=== PATIENT | male | born 1980 ===

== ENCOUNTER 2018-10-26 19:08 | Emergency (ER) | payer OTHER ==
[2018-10-26 19:21] VITALS: BP 123/80; RESP 16; TEMP 98.6; O2SAT 98
[2018-10-26] MEDS ORDERED: Tdap Vaccine 0.5 ml Vial (10-64 yrs) IM ONE ×2 (19:23→19:30)
[2018-10-26] MEDS ORDERED: Lidocaine 1% Inj (20ml) IJ ONE (19:39)
--- NOTE | 2018-10-26 19:52 | ED PDOC ---
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 He came to ED for evaluation due to persistent bleeding. Patient is right hand dominant. He denies any other complaints. Otherwise: (-) numbness, (-) other injury. PMD: Venancio Stewart Past Medical History Reviewed: Historical Data, Nursing Documentation, Vital Signs Vital Signs: Last Vital Signs Temp 98.6 F 10/26/18 19:17 Pulse 103 H 10/26/18 19:17 Resp 16 10/26/18 19:17 BP 123/80 10/26/18 19:17 Pulse Ox 98 10/26/18 19:17 - Medical History PMH: No Chronic Diseases - Surgical History Surgical History: Tonsillectomy - Family History Family History: States: Diabetes - Living Arrangements Living Arrangements: With Family - Immunization History Hx Tetanus Toxoid Vaccination: Yes (x6 years ago) - Home Medications Home Medications: Ambulatory Orders Medication Instructions Recorded Moxifloxacin HCl [Vigamox] 1 drop OS TID #3 ml 01/05/17 RX: Bacitracin Ointment 1 applic TOP BID #1 tube 10/26/18 [Bacitracin] RX: Naproxen 500 mg PO BID PRN #20 tab 10/26/18 - Allergies Allergies/Adverse Reactions: Allergies Allergy/AdvReac Type Severity Reaction Status Date / Time shellfish derived Allergy Mild RASH Verified 01/05/17 06:44 Review of Systems ROS Statement: Except As Marked, All Systems Reviewed And Found Negative Musculoskeletal: Positive for: Hand Pain (left hand laceration) Physical Exam - Reviewed Nursing Documentation Reviewed: Yes Vital Signs Reviewed: Yes - Physical Exam Comments: GENERAL APPEARANCE: Patient is awake, alert, oriented x 3, resting comfortably, in no acute distress. SKIN: Warm, dry; (-) cyanosis. NECK: Supple, FROM CHEST AND RESPIRATORY: (-) rales, (-) rhonchi, (-) wheezes; breath sounds equal bilaterally. Respirations even and nonlabored. HEART AND CARDIOVASCULAR: (-) irregularity Hand: (+) 1.5 cm u-shaped laceration to the dorsum of the right distal phalanx; (+) active bleeding; (+) full ROM, (+) sensation and capillary refill intact; (- ) edema, (-) ecchymosis, (-) warmth (-) nail involvement. Remainder of hand and wrist: nontender. NEURO AND PSYCH: Mental status as above. Gait: steady. Speech: clear. (-) facial asymmetry - ECG O2 Sat by Pulse Oximetry: 98 (RA) Pulse Ox Interpretation: Normal Procedure: Wound Repair - Time Performed Time Performed: 20:00 - Time Out Time Out: Side verified, Site verified, Patient ID confirmed - Procedure Procedure: Wound Repair: Finger Laceration - Consent Obtained Consent obtained: Verbal - Performed by Performed by: Mid-level Provider (Gemma GUADALUPE) - Indications Indication(s):: Laceration - Location Finger:: Right, Middle Shape:: Curvilinear Dimensions Length cm: 1.5 Depth:: Epidermis - Anesthetic Technique Anesthetic Technique: Local Local/Regional Anesthetic:: Lidocaine 1% (2mL) - Debris Debris:: None - Irrigated Irrigated with ml of normal saline: 200 - Complexity Complexity:: Simple (one layer) - Wound repair method Sutures:: # (4), Size (5-0), Type (Prolene) - Complications Complications: None. Bacitracin and telfa bandage applied. Patient educated on wound care. - Patient tolerated procedure Patient Tolerated Procedure:: Well Medical Decision Making Medical Decision Making: Time: 19:20 Impression: finger laceration Plan: --Adacel (10-64 years)) 0.5 ml IM --Lidocaine 1% (20ml) - 2 ml IJ 2000 Laceration repair performed by Gemma GUADALUPE. See procedure note. Suture removal in 7 days. Repeat HR: 92 On re-evaluation, patient reports improvement of symptoms. On exam, patient remains AAOx3, in no acute distress. Vitals stable. Lab/Diagnostic results d/w the patient in great detail. Diagnosis of finger laceration d/w the patient. Based on history, exam and diagnostic results, plan will be for outpatient follow up with PMD. Patient instructed to follow-up with pmd / referral provided / the clinic in 1- 2 days without fail. Advised to take medication as prescribed. Return to the emergency room at any time for any new or worsening symptoms. Patient states he fully agrees with and understands discharge instructions. States that he agrees with the plan and disposition. Verbalized and repeated discharge instructions and plan. I have given the patient opportunity to ask any additional questions. Scribe Attestation: Documented by Macho Ribera, acting as a scribe for Yessi Butterfield Provider Scribe Attestation: All medical record entries made by the Scribe were at my direction and persona lly dictated by me. I have reviewed the chart and agree that the record accurately reflects my personal performance of the history, physical exam, medical decision making, and the department course for this patient. I have also personally directed, reviewed, and agree with the discharge instructions and disposition. Disposition - Clinical Impression Clinical Impression: Finger laceration - Patient ED Disposition Is Patient to be Admitted: No Counseled Patient/Family Regarding: Studies Performed, Diagnosis, Need For Followup, Rx Given - Disposition Referrals: Dusty Craft MD [Staff Provider] - Mehnaz Perales MD [Staff Provider] - Disposition: Routine/Home Disposition Time: 20:10 Condition: STABLE Additional Instructions: SUTURE REMOVAL IN 7 DAYS. The emergency medical care you received today was directed at your acute symptoms. If you were prescribed any medication, please fill it and take as directed. It may take several days for your symptoms to resolve. Return to the Emergency Department if your symptoms worsen, do not improve, or if you have any other problems. Please contact your doctor in 2 days for re-evaluation and follow up / or call one of the physicians/clinics you have been referred to that are listed on the Patient Visit Information form that is included in your discharge packet. Bring any paperwork you were given at discharge with you along with any medications you are taking to your follow up visit. Our treatment cannot replace ongoing medical care by a primary care provider (PCP) outside of the emergency department. Prescriptions: RX: Bacitracin Ointment [Bacitracin] 1 applic TOP BID #1 tube RX: Naproxen 500 mg PO BID PRN #20 tab PRN Reason: Pain, Moderate (4-7) Instructions: Wound Care, Laceration Repair With Stitches (DC), Common Finger Injuries Forms: [facility] (Lithuanian) Print Language: DOMINICAN - POA Present On Arrival: None
[2018-10-26 20:30] VITALS: PULSE 92
== END 2018-10-26 20:30 | disposition home or self-care (01) ==
LOC: H.ER 19:08
DX: S61.212A Laceration without foreign body of right middle finger without damage to nail, initial encounter (principal); Z23 Encounter for immunization; W31.89XA Contact with other specified machinery, initial encounter; Y93.G1 Activity, food preparation and clean up